=== PATIENT | male | born 1985 | race Caucasian/White ===

== ENCOUNTER 2017-01-17 13:23 | Emergency (ER) | payer SELFPAY ==
[~2017-01-17] VITALS: Ht 182.9 cm; Wt 91.0 kg
[~2017-01-17 13:23] MED LIST: MELO15TA2 PO; ROBA750T3 PO; TYLE3 PO; Z.0.NO CURRENT MEDS
[2017-01-17 13:25] VITALS: BP 132/71; PULSE 106; RESP 20; TEMP 97.6; O2SAT 97
--- NOTE | 2017-01-17 13:34 | PD ---
HPI . left calf pain since yesterday Chief Complaint: Injury Time Seen by Provider: 13:33 Travel History International Travel<30 days: No Contact w/Intl Traveler<30days: No Traveled to known affect area: No History of Present Illness HPI 31-year-old male with no significant past medical here with complaints of left calf pain since yesterday. Patient was running away and tells me that he heard something pop in his left calf and immediately began to feel discomfort. He has difficulty walking or dorsiflexing his left ankle/leg. He is concerned about his leg. He denies any possible injury or trauma to the leg. His girlfriend works at the hospital and would like for him to have an MRI. Dr. Mora was brought back to see the patient as well. [facility] Past Medical History Heart Rhythm Problems: Yes (HEART MURMUR AND SVT ) Cardiovascular Problems: Yes (H/O CARDIOVERSION SECONDARY TO SVT) Integumentary: Yes (H/O AXILLARY CYSTS) Past Surgical History Section: Yes Social History Alcohol Use: Yes (1-2 X'S MONTH) Tobacco Use: Yes (1 PPD NORMALLY NOW MAYBE 1 PACK EVERY 2-3 DAYS) Substance Use: No Allergies-Medications (Allergen,Severity, Reaction): Coded Allergies: No Known Allergies (Verified , 01/17/17) Reported Meds & Prescriptions Reported Meds & Active Scripts Active Flexeril (Cyclobenzaprine HCl) 5 Mg Tab 5 Mg PO TID Ibuprofen 800 Mg Tab 800 Mg PO TID Review of Systems General / Constitutional: No: Fever Eyes: No: Visual changes HENT: No: Headaches Cardiovascular: No: Chest Pain or Discomfort Respiratory: No: Shortness of Breath Gastrointestinal: No: Abdominal Pain Genitourinary: No: Dysuria Musculoskeletal: Positive: Pain (left ankle/leg) Skin: No Rash Neurologic: No: Weakness Psychiatric: No: Depression Endocrine: No: Polydipsia Hematologic/Lymphatic: No: Easy Bruising Physical Exam Narrative GENERAL: AAO x 3, no acute distress, Well-nourished, well-developed patient. SKIN: Warm and dry. No visible rashes or bruising. HEAD: Normocephalic and atraumatic. EYES: No scleral icterus. No injection or drainage. ENT: No nasal drainage noted. Mucous membranes pink. Airway patent. NECK: Supple, trachea midline. No JVD. CARDIOVASCULAR: Regular rate and rhythm without murmurs, gallops, or rubs. RESPIRATORY: Breath sounds equal bilaterally. No accessory muscle use. No rhonchi or rales. GASTROINTESTINAL: Abdomen soft, non-tender, nondistended. EXTREMITIES: No cyanosis or edema. left leg calf circumference slightly larger than right. There is tenderness in the medial calf (gastrocnemius). He has significant difficulty with dorsiflexion but can plantar flex fully. He sensation is intact. BACK: Nontender without obvious deformity. No CVA tenderness. PSYCH: AAO x 3, normal affect. Data Data Last Documented VS Vital Signs Date Time Temp Pulse Resp B/P Pulse Ox O2 Delivery O2 Flow Rate FiO2 01/17/17 13:25 97.6 106 20 132/71 97 Room Air Orders Mri Lower Leg W/O Contrast (01/17/17 ) Radiology Film Requests (01/17/17 ) MDM Medical Decision Making Medical Screen Exam Complete: Yes Emergency Medical Condition: Yes Medical Record Reviewed: Yes Differential Diagnosis Torn muscle, less likely acute fracture, less likely DVT Narrative Course 31-year-old male with no significant past medical here with complaints of left calf pain since yesterday. Patient was running away and tells me that he heard something pop in his left calf and immediately began to feel discomfort. He has difficulty walking or dorsiflexing his left ankle/leg. He is concerned about his leg. He denies any possible injury or trauma to the leg. His girlfriend works at the hospital and would like for him to have an MRI. Dr. Mora was brought back to see the patient as well. Patient seen and examined. Case discussed with Dr. Costello. She also examined the patient. Both explained that this does not seem to be an emergent issue. Outpatient follow-up would be warranted. As a courtesy we will go ahead and perform a MRI of the left lower extremity. Patient is aware that if anything is torn or ruptured, he will need to see an outpatient orthopedic physician. Patient verbalized understanding of instructions, questions were answered, and thanked me for their care. I advised them if their condition worsens, please return to the nearest emergency room for further care. Diagnosis Primary Impression: Gastrocnemius tear Qualified Code: S86.812A - Gastrocnemius tear, left, initial encounter Additional Impression: Gastrocnemius strain, left Qualified Code: S86.112A - Gastrocnemius strain, left, initial encounter Referrals: Orthopaedic Surgeon Patient Instructions: General Instructions, Muscle Strain (ED) Additional Instructions: Please return to emergency department if your symptoms return or worsen. Follow up with your primary care provider. Take medications as prescribed. Med/Other Pt SpecificInfo: Prescription(s) given Scripts Cyclobenzaprine (Flexeril)5 Mg Tab5 Mg PO TID #30 TAB Ref 0 Prov:Ashwini Mora MD 01/17/17 Ibuprofen 800 Mg [id number] Mg PO TID #30 TAB Prov:Ashwini Mora MD 01/17/17 Disposition: 01 DISCHARGE HOME Condition: Stable Beba Erickson Jan 17, 2017 13:34
--- NOTE | 2017-01-17 15:53 | RADRPT ---
EXAM DATE/TIME: 01/17/2017 14:46 [facility] COMPARISON: No previous studies available for comparison. INDICATIONS : Trauma. Left calf pain s/p trauma. MEDICAL HISTORY : None. SURGICAL HISTORY : None. ENCOUNTER: Initial ACUITY: 1 day PAIN SCORE: 4/10 LOCATION: Left lower leg TECHNIQUE: Multiplanar multisequence MRI examination of the lower leg was performed without contrast. FINDINGS: Intermuscular hemorrhage is seen between soleus and gastrocnemii, especially the medial gastrocnemius . This pattern is often seen in the setting of plantaris tear. There are mild strains along the later al margin of medial gastrocnemius and along the medial margin of the medial gastrocnemius, mid to dis katerine bellies, without measurable tears. Some of the posterior hemorrhage is subcutaneous, especially distally. The left tibia and fibula are intact. CONCLUSION: Subcutaneous and intramuscular hematoma as above. Suspected plantaris tear in the proper clinical set ting. Focal, mild strains of medial and lateral gastrocnemius without perceptible tears. Alejandro Cho MD on January 17, 2017 at 15:43 Board Certified Radiologist. This report was verified electronically.
[2017-01-17] MEDS ORDERED: IBUP800T23 PO (16:32)
[2017-01-17] MEDS ORDERED: CYCL5TAB PO (16:33)
== END 2017-01-17 16:41 | disposition home or self-care (01) ==
LOC: NEPB 13:23
DX: S86.812A Strain of other muscle(s) and tendon(s) at lower leg level, left leg, initial encounter (principal); S86.112A Strain of other muscle(s) and tendon(s) of posterior muscle group at lower leg level, left leg, initial encounter; X50.3XXA Overexertion from repetitive movements, initial encounter; Y93.02 Activity, running; F17.210 Nicotine dependence, cigarettes, uncomplicated
CPT/HCPCS: 73718